=== PATIENT | female | born 1955 | race Caucasian/White ===

== ENCOUNTER 2019-02-22 12:58 | Emergency (ER) | payer SELFPAY ==
[~2019-02-22] VITALS: Ht 162.6 cm; Wt 81.6 kg
[2019-02-22 13:10] VITALS: BP 145/76
== END 2019-02-22 13:29 | disposition home or self-care (01) ==
LOC: ER 13:02
DX: H92.02 Otalgia, left ear (principal); I10 Essential (primary) hypertension; E11.9 Type 2 diabetes mellitus without complications; Z88.8 Allergy status to other drugs, medicaments and biological substances